=== PATIENT | male | born 1990 | race Two or more races ===

== ENCOUNTER 2025-06-08 11:54 | Emergency (ER) | payer MEDICAID, OTHER ==
[~2025-06-08] VITALS: Ht 182.9 cm; Wt 80.3 kg
[~2025-06-08 11:54] MED LIST: HYDR-1421
--- NOTE | 2025-06-08 13:09 | ED.PDOC ---
Eye-HPI HPI Comments 34y M who presents to the ED for chief complaint of eye pain. 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 Therapies tried: None Denies vision changes Denies eye discharge Denies hearing changes, nausea, vomiting Denies eye pain with movement, eye pain in general, difficulty keeping eye open, feeling of something stuck in the eye, sensitivity to light Chief Complaint: Eye Problem Time Seen by MD: 12:22 Primary Care Provider: OREN Reviewed Notes: Nurses Notes, Medications, Allergies Allergies: Coded Allergies: NO KNOWN ALLERGIES (Unverified , 11/28/11) Home Meds Active Scripts Ofloxacin (Otic) (FLOXIN OTIC) [address], 1 DROP OP QID for 5 Days, #5 MBQ 0 Refills Prov:DEWEY DOMÍNGUEZ [employer]BI[employer] MARKETING SPECIALIST 06/08/25 Ketorolac Tromethamine (Ophth) (Ketorolac Tromethamine) 0.5 % Afsaneh, 1 DROP RIGHTEYE QID for 2 Days, #5 ML 0 Refills Prov:DEWEY DOMÍNGUEZ [employer]BI[employer] MARKETING SPECIALIST 06/08/25 Reported Medications Hydrocodone-Acetaminophen (Vicodin) 1 Tab Tab 11/28/11 Information Source: Patient Mode of Arrival: Ambulatory Past Medical History PAST MEDICAL HISTORY: Denies Surgical History: Denies all surgeries Family History Family History: Unknown Social History Smoker: Non-Smoker Alcohol: Denies ETOH Use Drugs: Denies Drug Use Lives In: Home All Other Systems: Reviewed and Negative (PER HPI) Physical Exam General Appearance: No Apparent Distress, Normal HEENT: Head (Normocephalic atraumatic.), Normal ENT Inspection, PERRL/EOMI (No orbital erythema swelling edema. Mild conjunctival injection bilaterally. No foreign body visualized nor appreciated. EOMs intact. PERRLA), Pharynx Normal, TMs Normal Neck: Full Range of Motion, Non-Tender, Normal, Normal Inspection Respiratory: Chest Non-Tender, Lungs Clear, No Accessory Muscle Use, No Respiratory Distress, Normal Breath Sounds Cardiovascular: No Edema, No JVD, No Murmur, No Gallop, Normal Peripheral Pulses, Regular Rate/Rhythm Breast Exam: Deferred Gastrointestinal: No Organomegaly, Non Tender, No Pulsatile Mass, Normal Bowel Sounds, Soft Genitalia: Deferred Pelvic: Deferred Rectal: Deferred Extremities: No calf tenderness, Normal capillary refill, Normal inspection, Normal range of motion, Non-tender, No pedal edema Musculoskeletal : Apperance: Normal Neurologic: Alert, 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 Was a procedure done?: No EENT DIFF Eye: Viral, Corneal Abrasion, Iritis/Uveitis X-Ray, Labs, Meds, VS Vital Signs Date Time Temp Pulse Resp B/P (MAP) Pulse Ox O2 Delivery O2 Flow Rate FiO2 06/08/25 13:31 97.6 78 18 126/74 (91) 98 97.6 06/08/25 13:31 78 18 98 Room Air 06/08/25 12:20 98.2 65 17 116/72 (87) 96 98.2 X-Ray, Labs, Meds, VS Comment Patient arrives alert and oriented, ABC's intact, afebrile, vital signs stable, saturating well in room air History and findings consistent with corneal abrasion Applied 1 drop of tetracaine and patient reported instant relief with topical anesthesia Applied fluorescein strip Using Mcgee lamp corneal defect detected indicating corneal abrasion Tetanus prophylaxis Patient discharged and advised to follow-up in 48 hours with PCP or optometry Discussed with patient's approximate healing time for corneal abrasions is somewhere between 48 to 72 hours Jim Sign Branching/dendritic signs negative On reevaluation, patient had symptomatic improvement. Patient is stable for discharge at this time. External notes reviewed. Test results and diagnostic imaging interpreted. All diagnostic findings, discharge care, education and instructions provided Follow-up with PCP in 2 to 3 days Patient verbalized understanding and agreed to treatment plan Vital signs stable, afebrile, no acute distress noted Patient ambulatory with strong steady gait Advised to return precautions for any new or worsening symptoms, return to ER immediately for re-evaluation Patient is aware that the purpose of this visit was for an acute medical emergency requiring emergent stabilization. Chronic conditions, including malignancies have not been ruled out. Patient is instructed to follow up with PCP as directed and discharge instructions for continued care and workup. If unable to arrange follow-up, patient is to return to the emergency department for reassessment. Patient (parent or legal guardian if applicable) was given verbal and written discharge instructions and acknowledges understanding. Additional MDM Review of External, Non-ED records: External records reviewed. Discussion with independent historian (EMS, family) history obtained from the patient/parents (if applicable) at bedside Chronic conditions affecting care: None Social determinants of health affecting care: None Consideration of admission (observation or admission): I considered escalation of care to admission for this patient, however given the reassuring workup, the patient is safe for outpatient management. Discussion with the Radiology: No Tests considered but not performed: Prescription medication considered but not given: 12 lead EKG interpretation: Time of 1ST Reevaluation: 13:00 Reevaluation 1ST: Improved Patient Education/Counseling: Diagnosis, Treatment Family Education/Counseling: Diagnosis, Treatment SEPSIS Sepsis Screen Date sepsis recognized/suspect: Jun 08, 2025 Time Sepsis recognized/suspect: 1219 Recent Procedure: No On Antibiotic Therapy: No Respiratory Rate >20: No Heart Rate >90: No Temp<36 C (96.8 F) or >38.3 C: No SBP <90 or MAP <65 mmHG: No New Acute Mental Status Change: No Is the patient on CPAP, BIPAP,: No Physician Orders Mcgee Lamp (06/08/25 ) Visual Acuity (06/08/25 12:48) Jose Rafael Lens (06/08/25 ) Vital Signs Date Time Temp Pulse Resp B/P (MAP) Pulse Ox O2 Delivery O2 Flow Rate FiO2 06/08/25 13:31 97.6 78 18 126/74 (91) 98 97.6 06/08/25 13:31 78 18 98 Room Air 06/08/25 12:20 98.2 65 17 116/72 (87) 96 98.2 Departure 1 Departure Time of Disposition: 13:12 Impression: Primary Impression: Cornea abrasion Qualified Codes: S05.01XA - Injury of conjunctiva and corneal abrasion without foreign body, right eye, initial encounter Disposition: HOME / SELF CARE / HOMELESS Condition: Stable e-Prescriptions Ofloxacin (Otic) (FLOXIN OTIC) [address] 1 DROP OP QID for 5 Days, #5 MBQ 0 Refills Prov: DEWEY DOMÍNGUEZ [employer] SPECIALIST 06/08/25 Ketorolac Tromethamine (Ophth) (Ketorolac Tromethamine) 0.5 % Afsaneh 1 DROP RIGHTEYE QID for 2 Days, #5 ML 0 Refills Prov: DEWEY DOMÍNGUEZ [employer]BI[employer] MARKET[employer] SPECIALIST 06/08/25 Critical Care Note Critical Care Time?: No Stability Stability form required: No Heart Score Heart Score: Heart Score Response (Comments) Value History N/A 0 EKG N/A 0 Age N/A 0 Risk Factors N/A 0 Troponin N/A 0 Total 0 I personally scribed for DEWEY DOMÍNGUEZ NP ([email or web address]) on 06/08/25 at 13:09. Electronically submitted by Denis Martinez ([email or web address]). DEWEY DOMÍNGUEZ NP Jun 08, 2025 13:09
[2025-06-08] MEDS ORDERED: KETO0.5S31 RIGHTEYE (13:12)
[2025-06-08] MEDS ORDERED: OFL50TS OP (13:12)
[2025-06-08] MEDS: SODIUM CHLORIDE 0.9% 500 ML IV ONE (13:15)
[2025-06-08] MEDS: FLUORESCEIN SOD OPTH TEST STRIP EACHEYE ONE (13:15)
[2025-06-08] MEDS: TETANUS-DIPTH-ACEL PERTUSSIS 0.5ML SYR Tdap IM ONE (13:25)
[2025-06-08 13:31] VITALS: BP 126/74; PULSE 78; RESP 18; TEMP 97.6; O2SAT 98
== END 2025-06-08 13:35 | disposition home or self-care (01) ==
LOC: ER 11:54
DX: S05.01XA Injury of conjunctiva and corneal abrasion without foreign body, right eye, initial encounter (principal); W44.8XXA Other foreign body entering into or through a natural orifice, initial encounter; Y93.89 Activity, other specified; Y92.89 Other specified places as the place of occurrence of the external cause; Y99.8 Other external cause status
CPT/HCPCS: 90471; 90715; 99284; J7040